=== PATIENT | female | born 1995 | race Caucasian/White ===

== ENCOUNTER 2019-03-11 15:00 | Outpatient (CLI) | payer MEDICAID, SELFPAY ==
[2019-03-11 16:24] LABS: Basophils % 0.4 %; Eosinophils # 0.2 10^3/uL (0.0-0.8); Eosinophils % 4.2 %; Hematocrit 34.4 % (37.0-47.0); Hemoglobin 12.1 g/dL (11.5-15.3); Lymphocytes # 2.2 10^3/uL (0.8-4.8); Lymphocytes % 39.3 %; Mean Corpuscular HGB Conc 35.2 g/dL (30.0-36.0); Mean Corpuscular Hemoglobin 39.4 pg (28.0-34.0); Mean Corpuscular Volume 112.1 fL (81-99); Mean Platelet Volume 11.4 fL (7.4-10.4); Monocytes # 0.4 10^3/uL (0.2-0.9); Monocytes % 7.5 %; Neutrophils # 2.7 10^3/uL (1.8-7.7); Neutrophils % 48.2 %; Nucleated Red Blood Cells % 0 %; Platelet Count 155 10^3/cmm (130-400); Red Blood Count 3.07 10^6/uL (4.1-5.3); Red Cell Distribution Width 15.8 % (12.1-15.1); White Blood Count 5.5 10^3/uL (4.0-10.0)
--- NOTE | 2019-03-12 13:10 | ONC FU_ITS ---
Dr. Seo follow up note Patient: Luba Ann Unit #: [id number]: 1995 Dicatated By: Lauryn Seo M.D.Date of Visit:Mar 11, 2019 Onc Med Follow-up/Prog Note History of Present Illness: is a 24-year-old female with history of anemia. In the past, she was treated with vitamins and iron. April 04, 2018 she had developed jaundice, urine/stool color changes and presented to ER with nausea vomiting. Lab workup done in the emergency room showed hemoglobin 9.3 hematocrit 26.2 white blood count 7.7 platelets 1 96,000 haptoglobin 10 total bilirubin 10.5 urine showed 2+ bilirubin, LDH was 290 and creatinine was 0.7 with normal LFTs. Elevated reticulocyte count, anemia workup was inconclusive except FILIPPO positive. As per patient, her son had flulike symptoms and subsequently she did develop flulike symptoms prior to her visit to emergency room with nausea vomiting and jaundice. She has no history of blood transfusion; no history of connective tissue disorder. History of multiple miscarriages of unknown etiology. Patient was started on prednisone 100 mg by mouth daily and her hemoglobin was stabilized and she was discharged home on prednisone 60 mg, along with folic acid. Prednisone was further reduced to 40 mg by mouth daily on 04/15/2018, her follow-up lab showed hemoglobin in normal range and there was no evidence of hemolysis so on 04/24/2018, prednisone dose was further reduced to 20 mg by mouth daily for a week along with folic acid supplement Her labs checked on 04/30/2018 showed further improvement in her hemoglobin 15.4, hematocrit 46.2 with a normal bilirubin and LDH was slightly up at 244. Her prednisone dose was further reduced to 10 mg by mouth daily for week along with folic acid supplements. Was on Prednisone 10 mg by mouth every other day and discontinued on 06/12/2018 In May 2018, she thought she may be and was being followed by [facility]. On 08/31/2018 patient presented with mild jaundice and her CBC showed drop in her hemoglobin to 11.4 from 13.8 month ago and bilirubin cannot 3.7 LDH 313 Gayathri test came back positive and haptoglobin was 10, she was started on tappering dose prednisone 80 mg by mouth daily along with folic acid 1 mg daily. and stopped on 10/23/18 Came for follow-up, denies any specific complaints, no fever or chills, no nausea or vomiting, no melena or hematochezia, no petechiae, no jaundice, no nosebleed or gum bleed. . Medications: There is no information available for Current Medications - Patient. Allergies: Ondansetron HCl Review of Systems: Constitutional - Appetite is good and weight is stable. No fever, chills, hot flashes, or night sweats. Energy level is fair today, ENMT - No sinus congestion/drainage. No mouth sores. No sore throat or difficulty swallowing, Hematologic/Lymphatic - No abnormal bruising or bleeding, Respiratory - No cough today, Cardiovascular - No angina pain. No palpitations, Gastrointestinal - No nausea or vomiting. No heartburn or acid reflux. No diarrhea or constipation. No blood in the stool or black stools, Genitourinary (F) - No dysuria or hematuria. No urinary frequency. No urgency or incontinence, Musculoskeletal - No joint or bone pain, Neurologic - No headache or dizziness. No numbness/paresthesias or other focal neurologic symptoms, Psychiatric - No anxiety or depression. No insomnia. Vital Signs: Performed on Mar 11, 2019 16:20 Height - 66.00 in Weight - 172.2 lbs (LOW) BSA - 1.88 sq.m BMI - 27.79 Temperature - 98.0 F (LOW) Pulse - 93 /min Respiration - 20 /min BP - 144/94 mm(hg) (HIGH) O2 Sat - 100 % Pain - 0 Performance Status: 0 - Fully active, able to carry on all predisease activities without restrictions. (ECOG) Physical Examination: ENMT - No oral exudates, ulcers, masses, thrush or mucositis. Oropharynx clear. Tongue normal, Neck - Supple without masses or thyromegaly. No jugular venous distension, Respiratory - Lungs are clear to auscultation without rhonchi or wheezing, Cardiovascular - Regular rate and rhythm of heart without murmurs, gallops or rubs, Abdomen - Non-tender, non-distended, . Good bowel sounds. No guarding or rebound tenderness. No pulsatile masses, Extremities - no edema. Lab/Imaging: Test performed on Mar 11, 2019 15:15 WBC 5.5 10^9/L RBC 3.07 10^12/L HGB 12.1 g/dL HCT 34.4 % MCV 112.1 fl MCH 39.4 pg MCHC 35.2 g/dL RDW 15.8 % Platelet Count 155 10^9/L MPV 11.4 fL Neutrophils (Gran) 2.7 10^9/L Lymphocytes 2.2 10^9/L Monocytes 0.4 10^9/L Eosinophils 0.2 10^9/L Basophils 0.0 10^9/L Manual Lymphocytes 39.3 % Manual Monocytes 7.5 % Manual Eosinophils 4.2 % Manual Basophils 0.4 % NRBCs 0.0 /100 WBC Test performed on Dec 28, 2018 15:21 Neutrophil % 43.1 % Lymphocyte % 43.4 % Monocyte % 8.9 % Eosinophil % 4.0 % Basophils % 0.6 % Test performed on Nov 12, 2018 10:50 TSH 1.55 uIU/mL Test performed on Sep 16, 2018 14:35 Sodium 139 mmol/L Potassium 3.9 mmol/L Chloride 102 mmol/L CO2 22 mmol/L Anion Gap 18.9 BUN 15 mg/dL Creatinine 0.9 mg/dL Cr Clearance (Est) 121.80 mL/min eGFR 76.3 mL/min Glucose 116 mg/dl Calcium 9.1 mg/dL Protein, Total 7.1 g/dL Albumin 4.4 g/dL Globulin 2.7 gm/dL Bilirubin, Total 0.8 mg/dL ALT (SGPT) 19 U/L AST (SGOT) 10 U/L Alkaline Phosphatase 55 IU/L Impression: Autoimmune hemolytic anemia, FILIPPO positive, on prednisone tapering dose and folic acid now with normalization of hemoglobin Hemoglobin remained in the normal range so prednisone discontinued on 06/12/2018 Mild to moderate isolated thrombocytopenia, new finding E.g. first-time seen on labs done on 06/10/2008, etiology unclear, could be underlying ITP or idiopathic or subacute infection History of multiple miscarriages, now being evaluated by [facility] History of anemia, in the past treated with and iron supplement On 08/31/2018, she was restarted on prednisone 80 mg by mouth daily for recurrence of hemolytic anemia evident by drop in her hemoglobin to 11.4 g compared 13.8 on 07/27/2018 and bilirubin gone up 3.7 and LDH was 313 and haptoglobin was 10 and Gayathri' test was positive.Prednisone was tapered and finally stopped on 10/21/2018 as her hemoglobin stayed within normal range Plan: Discussed patient regarding her labs white blood count 5.5 hemoglobin 12.1 crit 34.4 platelets 155,000 Clinically, patient doing well with no signs symptom suggestive of gross bleeding, or hemoptysis. Her lab workup shows hemoglobin and platelet count in normal range. We'll continue to monitor and then she will return to clinic in 2 months with CBC. Unless jaundice or petechiae or ecchymosis or gross bleeding in that case she will call us early. Signed By: Lauryn Seo M.D. <<Signature on File>>
== END 2019-03-11 15:01 | disposition home or self-care (01) ==
LOC: ONCMED 15:01
PROVIDERS: Family Provider Nurse Practitioner Family; PCP Nurse Practitioner Family; Visit Provider Internal Medicine Hematology & Oncology
DX: D59.1 Other autoimmune hemolytic anemias (principal); D69.6 Thrombocytopenia, unspecified; Z79.52 Long term (current) use of systemic steroids
CPT/HCPCS: 36415; 85025; G0463

== ENCOUNTER 2019-05-27 01:05 | Emergency (ER) | payer MEDICAID, SELFPAY ==
[2019-05-27] VITALS (10 sets, daily range): BP systolic 104–148; BP diastolic 73–113; PULSE 73–84; RESP 14–16; TEMP 36.9; O2SAT 96–100; BMI 26.6
--- NOTE | 2019-05-27 01:08 | US_ITS ---
WS: [id number] Early obstetrical ultrasound. HISTORY: Pain. Vaginal bleeding. Intrauterine gestation is identified on transabdominal imaging. There is an intrauterine gestational sac containing a crown-rump length. [place]-rump length of 1.5 cm corresponds to gestation of 7 weeks a nd 6 days. No cardiac activity is identified. Normal yolk sac is not imaged. No subchorionic hemorrha ge. No free fluid. No adnexal masses. US/US pelvic complete* [id number] IMPRESSION: 1. Findings consistent with embryonic demise. No cardiac activity is identified on this transabdominal study. 2. Single intrauterine gestation of 7 weeks and 6 days.
--- NOTE | 2019-05-27 01:12 | ED_ITS ---
HPI - Abdominal Pain General: Chief Complaint: Vaginal Bleeding Stated Complaint: 10 WEEKS PREG/BLEEDING Time Seen by Provider: 05/27/19 01:06 History of Present Illness: HPI narrative: Luba is a nice 24-year-old female who comes in complaining of vaginal bleeding. She is 7, para 1, aborta 5. She states she is had many miscarriages secondary to antiphospholipid antibody syndrome. She denies any dysuria, fevers, chills, abdominal pain, low back pain or otherwise. She states secondary to the bleeding was just started today she was concerned and wanted to be checked out. She is not seen anybody for this up to this point. Associated Symptoms: Denies chills, coffee ground emesis, constipation, GI cramping, diarrhea, dysuria, fever(s), hematochezia, hematuria, hematemesis, melena, nausea, syncope and vomiting Review of Systems General: Reports: other (negative unless marked) Const: Denies: fever, chills, body aches, fatigue, malaise or diaphoresis Eyes: Denies: change in vision or blurry vision ENMT: Denies: throat pain, painful swallowing, hoarseness, ear pain, ear discharge, Change in hearing or nasal discharge Card: Denies: chest pain, palpitations, irregular heart rhythm, syncope, pre- syncope, shortness of breath on exertion or shortness of breath when lying down Resp: Denies: shortness of breath, productive cough, non-productive cough, wheezing, coughing up blood or chest congestion GI: Denies: abdominal pain, nausea, vomiting, vomiting blood, coffee grounds in vomit, diarrhea, constipation, cramping, blood in stool or black tarry stool : Denies: flank pain, painful urination, urinary frequency, urinary urgency, decreased urine ouput, urinary incontinence or blood in urine Musc: Denies: neck pain, back pain, extremity pain, extremity swelling, joint pain, joint swelling, joint warmth or joint stiffness Skin/Breast: Denies: rash, skin tenderness or yellow skin Neuro: Denies: headache, numbness in extremities, weakness in extremities, changes in sensation, lack of coordination, difficulty walking, dizziness, vertigo or confusion Endo: Denies: excessive thirst, tired all the time, cold intolerance, excessive sweating, flushing or hot flashes Wan/Lymph: Denies: easy bruising, easy bleeding, petechiae or enlarged lymph nodes All/Imm: Denies: hives, throat swelling, tongue swelling, facial swelling or acute wheezing PFSH ED PFSH: Medical History Antiphospholipid antibody syndrome Systemic lupus erythematosus Social History Smoking and tobacco status: current every day smoker Physical Exam Const: COMMON NORMALS: no apparent distress, oriented x3, no limitations, healthy appearing and well nourished EXAM LIMITATIONS: no altered mental status GENERAL APPEARANCE: cooperative, well kempt and well developed ORIE NTATION/CONSCIOUSNESS: Yes awake HENMT: COMMON NORMALS: normocephalic, head/scalp atraumatic, hearing grossly normal bilaterally, external ears normal, EAC's normal, external nose normal and moist oral mucous membranes HEAD & SCALP: normal to inspection, normocephalic and atraumatic FACE & SINUS: normal facial exam and face symmetric NOSE: external nose normal and nares normal EXTERNAL EAR: Yes external ears normal EXTERNAL AUDITORY CANAL: EAC's normal MOUTH: oral and palatal mucosa normal and tongue normal Eye: COMMON NORMALS: PERRL, EOMs intact bilaterally, conjunctivae normal and no scleral icterus GENERAL EYE: normal appearance of both eyes and normal light reflex CONJUNCTIVA: Yes conjunctivae normal SCLERA: sclerae normal CORNEA: Yes corneas normal PUPIL: Yes PERRL DIRECT OPHTHALMOSCOPY: Yes normal light reflex Neck/C-Spine: COMMON NORMALS: full ROM, no lymphadenopathy, supple, no meningeal signs and no JVD GENERAL: Yes normal visual inspection and Yes trachea midline CERVICAL SPINE: Yes cervical ROM normal Chest: COMMONS NORMALS: inspection of chest normal and palpation of chest normal Resp: COMMON NORMALS: normal respiratory effort, no retractions, no use of accessory muscles and clear to auscultation bilaterally EFFORT & INSPECTION: Yes able to speak in complete sentences AUSCULTATION: clear to auscultation bilaterally Cardio: COMMON NORMALS: no JVD, regular rate, regular rhythm, S1 normal heart sound, S2 normal heart sound, no gallops, no clicks, no murmurs and no rub JUGULAR VENOUS DISTENTION: no JVD RATE: regular rate RHYTHM: regular rhythm HEART SOUNDS: S1 normal and S2 normal GI: COMMON NORMALS: soft to palpation, non-tender, no hepatosplenomegaly and no masses INSPECTION: Yes normal to inspection PALPATION: Yes soft and Yes no hepatosplenomegaly : COMMON NORMALS: Yes no CVA tenderness and Yes bimanual exam normal BLADDER/KIDNEY EXAM: Yes no CVA tenderness SPECULUM EXAM - VAGINA: Yes vaginal bleeding Amount: scant and No vaginal tenderness SPECULUM EXAM - CERVIX: No cervical os open and Yes cervical os closed BIMANUAL EXAM - VAGINA & UTERUS: Yes normal bimanual exam, Yes normal cervical palpation and No cervical motion tenderness BIMANUAL EXAM - ADNEXA, OTHER: Yes normal adnexae, Yes pelvic support normal, No adnexal tenderness and No adnexal mass OB/EXTERNAL & SPECULUM: vaginal bleeding; No cervical os open Back/Pelvis: COMMON NORMALS: no CVA tenderness, thoracic and lumbar spine normal to inspection, no thoracic nor lumbar tenderness and thoraco-lumbar ROM normal Extremity: COMMON NORMALS: normal to inspection, full ROM, normal capillary refill, no joint enlargement, no clubbing, cyanosis or edema and no calf tenderness Neuro: COMMON NORMALS: oriented x3, CN's II-XII intact bilaterally, moves all extremities, no focal motor deficits and no sensory deficits noted MENINGEAL SIGNS: Yes no meningeal signs Psych: COMMON NORMALS: mental status grossly normal, thought process normal, cooperative, affect normal, speech normal and activity/motor behavior normal APPEARANCE: Yes well kempt SPEECH: Yes normal speech THOUGHT PROCESS: normal thought process Skin: COMMON NORMALS: no rashes or lesions noted, skin turgor normal, no jaundice, no petechiae and no mottling GENERAL SKIN EXAM: no rashes or lesions noted and turgor normal Course Vital Signs: Vital signs: Vital Signs Temperature 98.4 F 05/27/19 01:09 Pulse Rate 79 05/27/19 02:11 Respiratory Rate 16 05/27/19 02:11 Blood Pressure 111/78 05/27/19 02:11 Pulse Oximetry 98 05/27/19 02:11 MDM - Abdominal Pain MDM Narrative: Medical decision making narrative: Luba is a 24-year-old female who comes in with vaginal bleeding. She believes herself to be 10 weeks by dates but on ultrasound she is measuring 7 weeks and shows signs of demise. Patient is used to this is she has had several other miscarriages. She understands she needs to have her blood redrawn and a repeat ultrasound in 2 days. She will follow-up with Dr. Borrego who she is seeing for her LAN SUPPORT SPECIALIST but if she cannot get and she will return here. Concerning her elevated total bilirubin this is been a problem in the past with her antiphospholipid antibody syndrome and lupus. She says Dr. Seo manages this. Per review of records she is been much higher than this in the past. She will make a phone call in the morning to have him manage this and she expects to be put on prednisone. Otherwise she denies any complaints or concerns she has no abdominal pain just the vaginal bleeding. She will return if she has any problems in the meantime. Lab Data: Attestation: I reviewed the patient's lab results. Labs: Lab Results 05/27/19 05/27/19 05/27/19 Range/Units 01:32 01:32 01:32 WBC 6.5 (4.0-10.0) 10^3/ uL RBC 3.48 L (4.1-5.3) 10^6/u L Hgb 11.9 (11.5-15.3) g/dL Hct 35.0 L (37.0-47.0) % MCV 100.6 H (81-99) fL MCH 34.2 H (28.0-34.0) pg MCHC 34.0 (30.0-36.0) g/dL RDW 12.3 (12.1-15.1) % Plt Count 198 (130-400) 10^3/c mm MPV 11.5 H (7.4-10.4) fL Neut % (Auto) 43.2 % Lymph % (Auto) 45.9 % [place] % (Auto) 7.3 % Eos % (Auto) 2.9 % Baso % (Auto) 0.5 % Neut # (Auto) 2.8 (1.8-7.7) 10^3/u L Lymph # (Auto) 3.0 (0.8-4.8) 10^3/u L [place] # (Auto) 0.5 (0.2-0.9) 10^3/u L Eos # (Auto) 0.2 (0.0-0.8) 10^3/u L Baso # (Auto) 0.0 (0.0-0.1) 10^3/u L Nucleated RBC % (a uto) 0 % Nucleated RBCs # 0.0 /100WBC Sodium 136 (136-145) mmol/L Potassium 3.9 (3.5-5.1) mmol/L Chloride 102 (98-107) mmol/L Carbon Dioxide 22 (22-29) mmol/L Anion Gap 15.9 (5-19) BUN 9 (6-20) mg/dL Creatinine 0.7 (0.5-0.9) mg/dL GFR Calculation 101.1 (90-130) mL/min Glucose 93 (65-115) mg/dL Calculated Osmolal ity 278 L (285-295) mOsm/k g Calcium 9.6 (8.5-10.5) mg/dL Total Bilirubin 1.8 H (0.15-1.2) mg/dL AST 16 (0-32) U/L ALT 19 (0-33) U/L Alkaline Phosphata se 70 (35-105) IU/L Total Protein 6.9 (6.6-8.7) g/dL Albumin 4.1 (3.5-5.2) g/dL Globulin 2.8 (1.3-4.6) g/dL Ser , Husam i-Qnt mIU/mL Urine Color (Yellow) Urine Appearance (CLEAR) Urine pH (5-7) Ur Specific Gravit y (1.005-1.030) Urine Protein (Negative) Urine Glucose (UA) (Normal) Urine Ketones (Negative) Urine Blood (Negative) Urine Nitrate (Negative) Urine Bilirubin (NEGATIVE) Urine Urobilinogen (Negative) mg/dL Ur Leukocyte Kristin ase (Negative) Rho(D) Type Negaive 05/27/19 05/27/19 Range/Units 01:32 01:42 WBC (4.0-10.0) 10^3/ uL RBC (4.1-5.3) 10^6/u L Hgb (11.5-15.3) g/dL Hct (37.0-47.0) % MCV (81-99) fL MCH (28.0-34.0) pg MCHC (30.0-36.0) g/dL RDW (12.1-15.1) % Plt Count (130-400) 10^3/c mm MPV (7.4-10.4) fL Neut % (Auto) % Lymph % (Auto) % [place] % (Auto) % Eos % (Auto) % Baso % (Auto) % Neut # (Auto) (1.8-7.7) 10^3/u L Lymph # (Auto) (0.8-4.8) 10^3/u L [place] # (Auto) (0.2-0.9) 10^3/u L Eos # (Auto) (0.0-0.8) 10^3/u L Baso # (Auto) (0.0-0.1) 10^3/u L Nucleated RBC % (a uto) % Nucleated RBCs # /100WBC Sodium (136-145) mmol/L Potassium (3.5-5.1) mmol/L Chloride (98-107) mmol/L Carbon Dioxide (22-29) mmol/L Anion Gap (5-19) BUN (6-20) mg/dL Creatinine (0.5-0.9) mg/dL GFR Calculation (90-130) mL/min Glucose (65-115) mg/dL Calculated Osmolal ity (285-295) mOsm/k g Calcium (8.5-10.5) mg/dL Total Bilirubin (0.15-1.2) mg/dL AST (0-32) U/L ALT (0-33) U/L Alkaline Phosphata se (35-105) IU/L Total Protein (6.6-8.7) g/dL Albumin (3.5-5.2) g/dL Globulin (1.3-4.6) g/dL Ser , [place]nt 79520.00 mIU/mL Urine Color Yellow (Yellow) Urine Appearance Clear (CLEAR) Urine pH 5 (5-7) Ur Specific Gravit y 1.010 (1.005-1.030) Urine Protein Neg (Negative) Urine Glucose (UA) Norm (Normal) Urine Ketones Negative (Negative) Urine Blood Neg (Negative) Urine Nitrate Negative (Negative) Urine Bilirubin Neg (NEGATIVE) Urine Urobilinogen Norm (Negative) mg/dL Ur Leukocyte Kristin ase Negative (Negative) Rho(D) Type Imaging Data ^: US: Radiologist's impression: Pelvic ultrasound, technologist interpretation - demise. at 7 weeks with involuting sac. Sac pulling away from uterine lining. Normal ovaries. No torsion. Physiologic free fluid in the pelvis. No sign of ectopic. Otherwise unremarkable. Discharge Plan Discharge Patient Disposition: Home, Self-Care Clinical Impression: Incomplete Condition: Stable Referrals: Ligia Izaguirre MD [Physician] - 1-3 days Sukhi Costello FNP [Family Provider] - Daina Lucas FNP [Primary Care Provider] - Patient Instructions: Spontaneous Miscarriage (ED) Activity Restrictions/Additional Instructions: Please return to the ER immediately for any of the signs or symptoms listed on your discharge instruction sheets, worsening/changing of your symptoms, you are not getting better as quickly as expected, or for ANY other cause or concerns. Return to the ER if you develop heavy bleeding, lightheadedness, dizziness, fever, vomiting, or for any other cause for concern. Be certain to call Dr. Seo in regards to your developing a an elevated bilirubin. Be certain to be rechecked by your LAN SUPPORT SPECIALIST in 2 days to make sure your hormone is trending back to normal and for repeat examination. If for any reason you are unable to be seen by your LAN SUPPORT SPECIALIST or Dr. Borrego, return to the ER for recheck. Coding Level of Care Code ED Coordinator [employer] for Chg Fwd Exam Comprehensive
[2019-05-27 01:44] LABS: Basophils % 0.5 %; Eosinophils # 0.2 10^3/uL (0.0-0.8); Eosinophils % 2.9 %; Hemoglobin 11.9 g/dL (11.5-15.3); Lymphocytes % 45.9 %; Mean Corpuscular Hemoglobin 34.2 pg (28.0-34.0); Mean Corpuscular Volume 100.6 fL (81-99); Mean Platelet Volume 11.5 fL (7.4-10.4); Monocytes # 0.5 10^3/uL (0.2-0.9); Monocytes % 7.3 %; Neutrophils # 2.8 10^3/uL (1.8-7.7); Neutrophils % 43.2 %; Nucleated Red Blood Cells % 0 %; Platelet Count 198 10^3/cmm (130-400); Red Blood Count 3.48 10^6/uL (4.1-5.3); Red Cell Distribution Width 12.3 % (12.1-15.1); White Blood Count 6.5 10^3/uL (4.0-10.0)
[2019-05-27 01:55] LABS: Alanine Aminotransferase 19 U/L (0-33); Albumin Level 4.1 g/dL (3.5-5.2); Alkaline Phosphatase 70 IU/L (35-105); Anion Gap 15.9 (5-19); Aspartate Amino Transferase 16 U/L (0-32); Blood Urea Nitrogen 9 mg/dL (6-20); Calcium 9.6 mg/dL (8.5-10.5); Carbon Dioxide 22 mmol/L (22-29); Chloride 102 mmol/L (98-107); Globulin 2.8 g/dL (1.3-4.6); Glomerular Filtration Rate 101.1 mL/min (90-130); Glucose 93 mg/dL (65-115); Osmolality Calculated 278 mOsm/kg (285-295); Potassium 3.9 mmol/L (3.5-5.1); Sodium 136 mmol/L (136-145); Total Bilirubin 1.8 mg/dL (0.15-1.2); Total Protein 6.9 g/dL (6.6-8.7)
--- NOTE | 2019-05-27 01:55 | PC.NURSE ---
pelvic set up for HCP ready, HCP informed and nurse chaperoned procedure and assisted with swab collection. swabs labeled in presence of patient and taken to lab by nurse.
[2019-05-27 02:16] LABS: Add Urine Culture? No; Bilirubin Urine Neg (NEGATIVE); Blood Urine Neg (Negative); Glucose Urine UA Norm (Normal); Ketones Urine Negative (Negative); Leukocyte Esterase Urine Negative (Negative); Nitrate Urine Negative (Negative); Protein Urine Neg (Negative); Urine Appearance Clear (CLEAR); Urine Color Yellow (Yellow); Urobilinogen Urine Norm (Negative); pH Urine 5 (5-7)
--- NOTE | 2019-05-27 02:59 | PC.NURSE ---
PATIENT UPDATED ON PLAN OF CARE.
--- NOTE | 2019-05-31 13:57 | DCPLANNER ---
community services manager had message to schedule a follow up appointment for patient with [facility]. community services manager called [facility], spoke with Christina, gave clinic patients information. community services manager was told that patients information would be printed and reviewed. Clinic will call ed case manager and patient with appointment information.
--- NOTE | 2019-06-01 11:45 | DCPLANNER ---
Christina from [facility] called housing case manager with appointment information. manager news was told that a follow up appointment was scheduled for Sunday, June 02, 2019 at 10:[address] Santana. Clinic will call patient with appointment information.
--- NOTE | 2019-07-21 08:01 | DCPLANNER ---
Patient attended appointment on 06.02.19 with [facility].
== END 2019-05-27 05:09 | disposition home or self-care (01) ==
PROVIDERS: Emergency Provider Emergency Medicine; Family Provider Nurse Practitioner Family; PCP Nurse Practitioner Family
DX: O03.4 Incomplete spontaneous abortion without complication (principal); O99.331 Smoking (tobacco) complicating pregnancy, first trimester; F17.200 Nicotine dependence, unspecified, uncomplicated; Z3A.01 Less than 8 weeks gestation of pregnancy
CPT/HCPCS: 12345; 36415; 76856; 80053; 81001; 84702; 85025; 86850; 86870; 86900; 87210; 87491; 87591; 90384; 96360; 96361; 96372; 99282; 99283; 99284

== ENCOUNTER 2019-05-31 10:25 | Outpatient (CLI) | payer MEDICAID, SELFPAY ==
[2019-05-31 19:36] LABS: Basophils % 0.2 %; Eosinophils # 0.2 10^3/uL (0.0-0.8); Eosinophils % 4.1 %; Hematocrit 33.1 % (37.0-47.0); Hemoglobin 12.1 g/dL (11.5-15.3); Lymphocytes # 2.5 10^3/uL (0.8-4.8); Lymphocytes % 45.1 %; Mean Corpuscular HGB Conc 36.6 g/dL (30.0-36.0); Mean Corpuscular Hemoglobin 39.3 pg (28.0-34.0); Mean Corpuscular Volume 107.5 fL (81-99); Mean Platelet Volume 12.4 fL (7.4-10.4); Monocytes # 0.3 10^3/uL (0.2-0.9); Monocytes % 5.3 %; Neutrophils # 2.5 10^3/uL (1.8-7.7); Neutrophils % 45.1 %; Nucleated Red Blood Cells % 0 %; Platelet Count 180 10^3/cmm (130-400); Red Blood Count 3.08 10^6/uL (4.1-5.3); Red Cell Distribution Width 12.6 % (12.1-15.1); White Blood Count 5.6 10^3/uL (4.0-10.0)
[2019-05-31 19:48] LABS: Alanine Aminotransferase 17 U/L (0-33); Albumin Level 4.1 g/dL (3.5-5.2); Alkaline Phosphatase 80 IU/L (35-105); Anion Gap 18.2 (5-19); Aspartate Amino Transferase 16 U/L (0-32); Blood Urea Nitrogen 8 mg/dL (6-20); Calcium 9.3 mg/dL (8.5-10.5); Carbon Dioxide 22 mmol/L (22-29); Chloride 104 mmol/L (98-107); Globulin 3.3 g/dL (1.3-4.6); Glomerular Filtration Rate 86.7 mL/min (90-130); Glucose 59 mg/dL (65-115); Osmolality Calculated 286 mOsm/kg (285-295); Potassium 3.2 mmol/L (3.5-5.1); Sodium 141 mmol/L (136-145); Total Bilirubin 1.3 mg/dL (0.15-1.2); Total Protein 7.4 g/dL (6.6-8.7)
== END 2019-05-31 10:26 | disposition home or self-care (01) ==
LOC: ONCMED 06-01 09:39
PROVIDERS: Family Provider Nurse Practitioner Family; PCP Nurse Practitioner Family; Visit Provider Internal Medicine Hematology & Oncology
DX: D59.1 Other autoimmune hemolytic anemias (principal)
CPT/HCPCS: 36415; 80053; 85025

== ENCOUNTER 2019-06-08 06:00 | Outpatient (CLI) | payer MEDICAID, SELFPAY ==
[2019-06-08 20:34] LABS: Basophils % 0.4 %; Eosinophils # 0.3 10^3/uL (0.0-0.8); Eosinophils % 5.4 %; Hematocrit 37.9 % (37.0-47.0); Hemoglobin 13.5 g/dL (11.5-15.3); Lymphocytes # 2.5 10^3/uL (0.8-4.8); Lymphocytes % 47.7 %; Mean Corpuscular HGB Conc 35.6 g/dL (30.0-36.0); Mean Corpuscular Hemoglobin 37.4 pg (28.0-34.0); Mean Platelet Volume 12.3 fL (7.4-10.4); Monocytes # 0.3 10^3/uL (0.2-0.9); Monocytes % 6.6 %; Neutrophils # 2.1 10^3/uL (1.8-7.7); Neutrophils % 39.9 %; Nucleated Red Blood Cells % 0 %; Platelet Count 194 10^3/cmm (130-400); Red Blood Count 3.61 10^6/uL (4.1-5.3); Red Cell Distribution Width 12.3 % (12.1-15.1); White Blood Count 5.2 10^3/uL (4.0-10.0)
[2019-06-08 20:59] LABS: Alanine Aminotransferase 20 U/L (0-33); Albumin Level 4.3 g/dL (3.5-5.2); Alkaline Phosphatase 85 IU/L (35-105); Anion Gap 18.3 (5-19); Aspartate Amino Transferase 19 U/L (0-32); Blood Urea Nitrogen 7 mg/dL (6-20); Calcium 9.6 mg/dL (8.5-10.5); Carbon Dioxide 23 mmol/L (22-29); Chloride 101 mmol/L (98-107); Globulin 3.4 g/dL (1.3-4.6); Glomerular Filtration Rate 86.7 mL/min (90-130); Glucose 47 mg/dL (65-115); Osmolality Calculated 281 mOsm/kg (285-295); Potassium 3.3 mmol/L (3.5-5.1); Sodium 139 mmol/L (136-145); Total Bilirubin 1.4 mg/dL (0.15-1.2); Total Protein 7.7 g/dL (6.6-8.7)
== END 2019-06-08 06:01 | disposition home or self-care (01) ==
LOC: ONCMED 06-09 12:33
PROVIDERS: Family Provider Nurse Practitioner Family; PCP Nurse Practitioner Family; Visit Provider Internal Medicine Hematology & Oncology
DX: D59.1 Other autoimmune hemolytic anemias (principal)
CPT/HCPCS: 36415; 80053; 85025

== ENCOUNTER → 2019-06-09 11:00 | Outpatient (BNVA) | payer MEDICAID, SELFPAY | PROVIDERS: Family Provider Nurse Practitioner Family; PCP Nurse Practitioner Family; Visit Provider Obstetrics & Gynecology Female Pelvic Medicine and Reconstructive Surgery | DX: O03.83 Metabolic disorder following complete or unspecified spontaneous abortion (principal); N88.9 Noninflammatory disorder of cervix uteri, unspecified | CPT/HCPCS: 84702; 88305 ==

== ENCOUNTER → 2019-06-14 15:49 | Outpatient (BNVA) | payer MEDICAID, SELFPAY | PROVIDERS: Family Provider Nurse Practitioner Family; PCP Nurse Practitioner Family; Visit Provider Obstetrics & Gynecology Female Pelvic Medicine and Reconstructive Surgery | DX: O03.83 Metabolic disorder following complete or unspecified spontaneous abortion (principal) | CPT/HCPCS: 84702 ==

== ENCOUNTER → 2019-06-15 11:06 | Outpatient (BNVA) | payer MEDICAID, SELFPAY | PROVIDERS: Family Provider Nurse Practitioner Family; PCP Nurse Practitioner Family; Visit Provider Obstetrics & Gynecology Female Pelvic Medicine and Reconstructive Surgery | DX: N88.9 Noninflammatory disorder of cervix uteri, unspecified (principal); N87.1 Moderate cervical dysplasia; A63.0 Anogenital (venereal) warts | CPT/HCPCS: 81000 ==

== ENCOUNTER → 2019-06-16 11:16 | Outpatient (BNVA) | payer MEDICAID, SELFPAY | PROVIDERS: Family Provider Nurse Practitioner Family; PCP Nurse Practitioner Family; Visit Provider Obstetrics & Gynecology Female Pelvic Medicine and Reconstructive Surgery | DX: N87.1 Moderate cervical dysplasia (principal) | CPT/HCPCS: 88305; 88307 ==

== ENCOUNTER → 2019-06-30 16:57 | Outpatient (BNVA) | payer MEDICAID, SELFPAY | PROVIDERS: Family Provider Nurse Practitioner Family; PCP Nurse Practitioner Family; Visit Provider Emergency Medicine | DX: J02.9 Acute pharyngitis, unspecified (principal) | CPT/HCPCS: 87071; 87880 ==

== ENCOUNTER 2019-07-09 08:10 | Outpatient (CLI) | payer MEDICAID, SELFPAY ==
[2019-07-09 11:23] LABS: Basophils % 0.3 %; Eosinophils # 0.3 10^3/uL (0.0-0.8); Eosinophils % 5.1 %; Hematocrit 41.7 % (37.0-47.0); Hemoglobin 14.6 g/dL (11.5-15.3); Lymphocytes # 2.8 10^3/uL (0.8-4.8); Lymphocytes % 47.9 %; Mean Corpuscular Hemoglobin 34.4 pg (28.0-34.0); Mean Corpuscular Volume 98.1 fL (81-99); Mean Platelet Volume 12.2 fL (7.4-10.4); Monocytes # 0.4 10^3/uL (0.2-0.9); Monocytes % 6.5 %; Neutrophils # 2.4 10^3/uL (1.8-7.7); Nucleated Red Blood Cells % 0 %; Platelet Count 132 10^3/cmm (130-400); Red Blood Count 4.25 10^6/uL (4.1-5.3); Red Cell Distribution Width 11.7 % (12.1-15.1); White Blood Count 5.9 10^3/uL (4.0-10.0)
[2019-07-09 11:53] LABS: Alanine Aminotransferase 13 U/L (0-33); Alkaline Phosphatase 80 IU/L (35-105); Aspartate Amino Transferase 14 U/L (0-32); Blood Urea Nitrogen 5 mg/dL (6-20); Calcium 9.3 mg/dL (8.5-10.5); Carbon Dioxide 20 mmol/L (22-29); Chloride 106 mmol/L (98-107); Globulin 3.2 g/dL (1.3-4.6); Glomerular Filtration Rate 86.7 mL/min (90-130); Glucose 79 mg/dL (65-115); Osmolality Calculated 283 mOsm/kg (285-295); Sodium 139 mmol/L (136-145); Total Bilirubin 0.7 mg/dL (0.15-1.2); Total Protein 7.2 g/dL (6.6-8.7)
== END 2019-07-09 08:11 | disposition home or self-care (01) ==
LOC: ONCMED 11:31
PROVIDERS: PCP Nurse Practitioner Family; Visit Provider Internal Medicine Hematology & Oncology
DX: D59.1 Other autoimmune hemolytic anemias (principal)
CPT/HCPCS: 36415; 80053; 85025

== ENCOUNTER → 2020-04-17 00:01 | Outpatient (BNVA) | payer BC, MEDICAID, SELFPAY | PROVIDERS: PCP Nurse Practitioner Family; Visit Provider Obstetrics & Gynecology | DX: N87.1 Moderate cervical dysplasia (principal); A63.0 Anogenital (venereal) warts | CPT/HCPCS: 88175 ==

== ENCOUNTER → 2020-05-03 08:23 | Outpatient (BNVA) | payer BC, MEDICAID, SELFPAY | PROVIDERS: PCP Nurse Practitioner Family; Referring Provider Psychiatry & Neurology Neurology; Visit Provider Psychiatry & Neurology Neurology | DX: D64.9 Anemia, unspecified (principal) | CPT/HCPCS: 85007; 85027 ==

== ENCOUNTER 2020-05-05 11:30 | Outpatient (CLI) | payer BC, MEDICAID, SELFPAY | END 2020-05-05 11:31 | disposition home or self-care (01) | LOC: ONCMED 11:33 | PROVIDERS: PCP Nurse Practitioner Family; Visit Provider Internal Medicine Hematology & Oncology | DX: R10.32 Left lower quadrant pain (principal); N94.9 Unspecified condition associated with female genital organs and menstrual cycle | CPT/HCPCS: 76830 ==

== ENCOUNTER → 2020-05-08 11:16 | Outpatient (BNVA) | payer BC, MEDICAID, SELFPAY | PROVIDERS: PCP Nurse Practitioner Family; Visit Provider Obstetrics & Gynecology | DX: N91.1 Secondary amenorrhea (principal); M32.9 Systemic lupus erythematosus, unspecified | CPT/HCPCS: 81025 ==

== ENCOUNTER → 2020-05-23 13:36 | Outpatient (BNVA) | payer BC, MEDICAID, SELFPAY | PROVIDERS: PCP Nurse Practitioner Family; Visit Provider Obstetrics & Gynecology | DX: M32.9 Systemic lupus erythematosus, unspecified (principal) | CPT/HCPCS: 80076; 82565; 85025; 85651; 86038; 86140; 86160; 86162; 86235; 86255; 86376; 86431 ==

== ENCOUNTER → 2020-07-28 09:00 | Outpatient (BNVA) | payer BC, MEDICAID, SELFPAY | PROVIDERS: PCP Nurse Practitioner Family; Visit Provider Internal Medicine | DX: D68.61 Antiphospholipid syndrome (principal); R76.8 Other specified abnormal immunological findings in serum; R53.83 Other fatigue; M25.50 Pain in unspecified joint; R21 Rash and other nonspecific skin eruption; F48.8 Other specified nonpsychotic mental disorders; Z79.52 Long term (current) use of systemic steroids; F17.210 Nicotine dependence, cigarettes, uncomplicated | CPT/HCPCS: 99214 ==

== ENCOUNTER 2020-07-28 10:17 | Outpatient (CLI) | payer BC, MEDICAID, SELFPAY ==
--- NOTE | 2020-07-28 11:38 | ECG_ITS ---
[facility] Test Date: 2020-07-28 Pat Name: Luba Ann Department: Room: Gender: Female Cytometry Technologist: : 1995 Requested By: Kurtis Black Order Number: [id number] Rianna MD: MARCELO JESUS Measurements Intervals [place] Rate: 88 P: 56 NC: 171 QRS: 71 QRSD: 80 T: 53 QT: 352 QTc: 428 Interpretive Statements SINUS RHYTHM POSSIBLE LEFT ATRIAL ENLARGEMENT [-0.1mV P WAVE IN V1/V2] Compared to ECG 01/25/2019 19:59:13 No significant changes Electronically Signed On 07-29-2020 20:25:03 CDT by MARCELO JESUS [email or web address]
[2020-08-01 20:23] LABS: LA-Interp Not Indicated; PTT-LA 40 sec (<=40); Prothrombin Time 46 sec (<=45); Thrombin Time Reflex Negative (Negative)
[2020-08-03 06:13] LABS: Beta 2 Glycoprotein IGA 48.9 U/mL (<20.0); Beta 2 Glycoprotein IGG 23.9 U/mL (<20.0); Beta 2 Glycoprotein IGM >112.0 U/mL (<20.0)
[2020-08-16 11:52] LABS: CARDIOLIPIN AB (IGA) 62.2 APL-U/mL; CARDIOLIPIN AB (IGG) 27.1 GPL-U/mL; CARDIOLIPIN AB (IGM) >112.0 MPL-U/mL
== END 2020-07-28 10:18 | disposition home or self-care (01) ==
LOC: RT 10:43
PROVIDERS: PCP Nurse Practitioner Family; Visit Provider Internal Medicine
DX: D68.61 Antiphospholipid syndrome (principal)
CPT/HCPCS: 85613; 85730; 86146; 86147; 93005

== ENCOUNTER → 2020-08-17 14:21 | Outpatient (BNVA) | payer BC, MEDICAID, SELFPAY | PROVIDERS: PCP Nurse Practitioner Family; Visit Provider Internal Medicine | DX: D68.61 Antiphospholipid syndrome (principal); R76.8 Other specified abnormal immunological findings in serum; G47.00 Insomnia, unspecified; F41.9 Anxiety disorder, unspecified; F17.210 Nicotine dependence, cigarettes, uncomplicated | CPT/HCPCS: 99213 ==

== ENCOUNTER → 2020-09-21 12:27 | Outpatient (BNVA) | payer BC, MEDICAID, SELFPAY | PROVIDERS: PCP Nurse Practitioner Family; Visit Provider Emergency Medicine | DX: M25.572 Pain in left ankle and joints of left foot (principal) | CPT/HCPCS: 73610; 73630 ==

== ENCOUNTER 2020-12-13 16:45 | Outpatient (CLI) | payer BC, MEDICAID, SELFPAY ==
[2020-12-13 17:10] LABS: Add Urine Microscopic? NO; Charge for UA Resulting for Rev
[2020-12-13 17:15] LABS: Basophils % 0.6 %; Eosinophils # 0.1 10^3/uL (0.0-0.8); Eosinophils % 2.4 %; Hematocrit 43.8 % (37.0-47.0); Hemoglobin 14.6 g/dL (11.5-15.3); Lymphocytes # 1.3 10^3/uL (0.8-4.8); Lymphocytes % 26.1 %; Mean Corpuscular HGB Conc 33.3 g/dL (30.0-36.0); Mean Corpuscular Hemoglobin 31.1 pg (28.0-34.0); Mean Corpuscular Volume 93.4 fl (81-99); Mean Platelet Volume 12.4 fL (7.4-10.4); Monocytes # 0.3 10^3/uL (0.2-0.9); Monocytes % 5.5 %; Neutrophils # 3.29 10^3/uL (1.8-7.7); Neutrophils % 65.2 %; Nucleated Red Blood Cells % 0 %; Platelet Count 132 10^3/cmm (130-400); Red Blood Count 4.69 10^6/uL (4.1-5.3); White Blood Count 5.1 10^3/uL (4.0-10.0)
[2020-12-13 17:25] LABS: INR 0.94 (0.8-1.2)
[2020-12-13 17:26] LABS: Partial Thromboplastin Time 30.1 SECONDS (23.9-36.7)
[2020-12-13 18:04] LABS: Bilirubin Urine Neg (Negative); Blood Urine Neg (Negative); Glucose Urine UA Norm (Normal); Ketones Urine Negative (Negative); Leukocyte Esterase Urine Negative (Negative); Nitrate Urine Negative (Negative); Protein Urine Neg (Negative); Specific Gravity, Urine 1.005 (1.005-1.030); Urine Appearance Clear (CLEAR); Urine Color Straw (Yellow); Urobilinogen Urine Norm (Negative); pH Urine 7 (5-7)
[2020-12-13 18:07] LABS: 25 Hydroxy Vitamin D 44 ng/mL (30-100); Alanine Aminotransferase 14 U/L (0-33); Alkaline Phosphatase 70 IU/L (35-105); Anion Gap 12.8 (5-19); Aspartate Amino Transferase 13 U/L (0-32); Blood Urea Nitrogen 9 mg/dL (6-20); Calcium 8.7 mg/dL (8.5-10.5); Carbon Dioxide 23 mmol/L (22-29); Chloride 104 mmol/L (98-107); Globulin 3.1 g/dL (1.3-4.6); Glucose 75 mg/dL (65-115); Magnesium 1.9 mg/dL (1.7-2.3); Osmolality Calculated 279 mOsm/kg (285-295); Potassium 3.8 mmol/L (3.5-5.1); Sodium 136 mmol/L (136-145); Thyroid Stimulating Hormone 1.01 uIU/mL (0.27-4.20); Total Protein 7.1 g/dL (6.6-8.7); Vitamin B12 725 pg/mL (232-1245)
[2020-12-13 19:03] LABS: Folate Level > 20.0 ng/mL (4.8-37.3)
[2020-12-14 16:44] LABS: Erythrocyte Sedimentation Rate 51 mm/hr (0-15)
[2020-12-18 01:23] LABS: Vitamin B1(Thiamin) Plas/Ser 7 nmol/L (8-30)
[2020-12-18 23:22] LABS: Immunoglobulin A 363 mg/dL (47-310)
[2020-12-20 23:12] LABS: Glucose-6-Phosphate Dehydrogen 17.4 U/g Hgb (7.0-20.5)
[2020-12-21 16:12] LABS: Gliadin Ab.IgA 11.7 U/mL; Gliadin Ab.IgG <1.0 U/mL; Tissue Transglutaminase IgA Ab <1.0 U/mL; Tissue transglutaminase Ab.IgG <1.0 U/mL
== END 2020-12-13 16:46 | disposition home or self-care (01) ==
PROVIDERS: PCP Nurse Practitioner Family; Visit Provider Internal Medicine
DX: D68.61 Antiphospholipid syndrome (principal); M25.50 Pain in unspecified joint; M32.9 Systemic lupus erythematosus, unspecified; R76.8 Other specified abnormal immunological findings in serum; Z79.899 Other long term (current) drug therapy; D86.9 Sarcoidosis, unspecified; Z51.81 Encounter for therapeutic drug level monitoring
CPT/HCPCS: 36415; 80053; 81003; 82306; 82607; 82746; 82784; 82955; 83516; 83735; 84425; 84443; 85025; 85610; 85651; 85730; 86140

== ENCOUNTER → 2020-12-26 14:40 | Outpatient (BNVA) | payer BC, MEDICAID, SELFPAY | PROVIDERS: PCP Nurse Practitioner Family; Visit Provider Nurse Practitioner Family | DX: Z20.822 Contact with and (suspected) exposure to COVID-19 (principal) | CPT/HCPCS: 87635 ==

== ENCOUNTER 2020-12-28 01:55 | Emergency (ER) | payer BC, MEDICAID, SELFPAY ==
[2020-12-28 01:57] VITALS: BP 154/106; PULSE 90; RESP 20; TEMP 36.4; O2SAT 98; BMI 25.8
--- NOTE | 2020-12-28 01:57 | W.ED.URI ---
HPI - URI/Sore Throat General: Chief Complaint: Upper Respiratory Infection Stated Complaint: SOB/COUGH Time Seen by Provider: 12/28/20 01:57 History of Present Illness: HPI Narrative: 25-year-old female comes in today with persistent coughing. Patient is in no acute distress at this time. Patient came in by EMS. Patient recently been started on some azithromycin for respiratory infection. Patient was worried that she may be developing pneumonia. Patient does use inhalers for asthma. Patient reports illness for 4 days. MD elicited complaint: cough Review of Systems General: Reports: 10 or more systems reviewed and unremarkable except in HPI and below Resp: Reports: non-productive cough PFSH ED PFSH: Medical History Antiphospholipid antibody syndrome Systemic lupus erythematosus Family History Mother Ovarian cancer Cervical cancer Hypertension Grandmother Breast cancer maternal Colon cancer maternal Hypertension maternal Thyroid condition maternal Father Heart disease Hypertension Stroke Family/Other Diabetes maternal aunt Social History Smoking and tobacco status: current every day smoker cigarettes Packs smoked per day: 1 Alcohol intake: current Alcohol intake frequency: few times a month Alcohol type: hard liquor Female Reproductive History: Date of last menstrual period: 03/15/19 Physical Exam Const: COMMON NORMALS: no acute distress and patient oriented x3 GENERAL APPEARANCE: cooperative HENMT: COMMON NORMALS: normocephalic and Normal external nose present HEAD & SCALP: normal to inspection and normocephalic NOSE: Normal external nose present MOUTH: Normal oral and palatal mucosa present THROAT: posterior oropharynx normal Eye: GENERAL EYE: appearance normal, both eyes and all related structures Neck/C-Spine: COMMON NORMALS: full ROM Lymph: LYMPHATIC: no lymphadenopathy noted Chest: COMMONS NORMALS: normal inspection of the chest Resp: COMMON NORMALS: normal respiratory effort and clear to auscultation bilaterally EFFORT & INSPECTION: Yes able to speak in complete sentences AUSCULTATION: clear to auscultation bilaterally Cardio: COMMON NORMALS: regular rate and regular rhythm RATE: regular rate RHYTHM: regular rhythm GI: COMMON NORMALS: non-tender : COMMON NORMALS: Yes no CVA tenderness BLADDER/KIDNEY EXAM: Yes no CVA tenderness Back/Pelvis: COMMON NORMALS: no CVA tenderness and thoracic and lumbar spine normal to inspection Extremity: COMMON NORMALS: normal to inspection Neuro: COMMON NORMALS: patient oriented x3 and moves all extremities Psych: COMMON NORMALS: mental status grossly normal and cooperative Skin: COMMON NORMALS: no rashes or lesions noted GENERAL SKIN EXAM: no rashes or lesions noted Course Vital Signs: Vital signs: Vital Signs Temperature 97.5 F L 12/28/20 01:57 Pulse Rate 90 12/28/20 01:57 Respiratory Rate 20 H 12/28/20 01:57 Blood Pressure 154/106 12/28/20 01:57 Pulse Oximetry 98 12/28/20 01:57 MDM - URI/Sore Throat MDM Narrative: Medical decision making narrative: 25-year-old female comes in today with persistent cough. Patient states that she was unable to get her cough under control tonight and she actually wetted herself. Patient does have a history of asthma. Patient appears well. Patient appears no acute distress. Lungs are clear to auscultation. Vital signs are normal. Patient makes full sentences without any respiratory difficulty. No episodes of coughing were noted. Differential diagnosis includes but not limited to pneumonia, acute bronchitis, exacerbation of asthma. Chest x-ray was normal. COVID-19 antigen test is negative. Patient will await Covid PCR test for final results. Recommended continue with azithromycin as directed. Recommend follow-up with primary care as needed. Patient was given 10 mg dexamethasone IM for exacerbation of asthma versus bronchitis. Patient was given some Promethazine DM as needed for persistent coughing. Lab Data: Labs: Lab Results 12/28/20 02:14 SARS-CoV-2 Ag (Rap id) Negative (Negative) Discharge Plan Discharge Patient Disposition: Home Clinical Impression: Cough due to bronchospasm, Bronchitis Condition: Stable Prescriptions: New promethazine-DM 6.25-15 mg/5 mL syrup 5 ml PO Q6H PRN (Reason: cough) Qty: 118 RF: 0 No Action prednisone 20 mg tablet 20 mg PO DAILY RF: 0 budesonide-formoterol [Symbicort] 80-4.5 mcg/actuation HFA aerosol inhaler 2 puff inhalation BID RF: 0 vitamin B complex [B Complex-Vitamin B12] Tablet 1 tab PO DAILY Qty: 90 RF: 0 azithromycin [Zithromax] 1 gram packet 1 g PO DAILY 7 Days Qty: 1 RF: 0 albuterol sulfate 90 mcg/actuation HFA aerosol inhaler 2 puff inhalation Q6H PRNRF: 0 prednisone 5 mg tablet See Rx Instructions PO DAILY Qty: 60 RF: 0 thiamine HCl (vitamin B1) 100 mg tablet 50 mg PO DAILY Qty: 30 RF: 0 B12 Active 1,000 mcg tablet,chewable 1,000 mcg PO DAILY Qty: 30 RF: 0 folic acid 1 mg tablet 1 mg PO DAILY Qty: 30 RF: 0 aspirin [Adult Low Dose Aspirin] 81 mg tablet,delayed release (DR/EC) 81 mg PO DAILY RF: 0 (DME) cam walker See Rx Instructions .ROUTE .MEDSUPPLY Qty: 1 RF: 0 hydroxychloroquine 200 mg tablet 200 mg PO BID Qty: 60 RF: 3 thiamine HCl (vitamin B1) 100 mg tablet 100 mg PO DAILY Qty: 30 RF: 0 Discharge Orders: Discharge ED (Routine); Ordered 12/28/20 Ordered By: Connor Gasca Referrals: Daina Lucas FNP [Referring] - Discharge Diet: Usual diet Discharge Activity: Increase activity as tolerated Patient Instructions: Acute Bronchitis (ED), Opioid Safety Activity Restrictions/Additional Instructions: Continue with azithromycin and medications as directed by primary care. Drink plenty of fluids. Follow-up with primary care as needed. Use Promethazine DM for persistent cough as needed. Return to the emergency department for new concerns or worsening symptoms. Coding Level of Care Code ED Building Equipment Inspector for Ebony Peña Exam Comprehensive
--- NOTE | 2020-12-28 02:02 | XRR_ITS ---
PROCEDURE INFORMATION: Exam: XR Chest Exam date and time: 12/28/2020 2:02 AM Age: 25 years old Clinical indication: Patient HX: Cough with SOB. TECHNIQUE: Imaging protocol: XR of the chest. Views: 1 view. COMPARISON: CR Chest 2 views* [id number] 04/06/2018 1:11 PM FINDINGS: Lungs: Calcified pulmonary nodule/nodules, consistent with prior granulomatous disease. Pleural spaces: Unremarkable. No pleural effusion. No pneumothorax. Heart/Mediastinum: Unremarkable. No cardiomegaly. Bones/joints: Unremarkable. XR/XR chest 1V portable [id number] IMPRESSION: No acute disease. Radiation Dose CTDIVOL = (mGy): DLP = (mGy-cm)
[2020-12-28 02:40] LABS: SARS Covid-2 Antigen Negative (Negative)
[2020-12-28] MEDS: promethazine-cod syrup 6.25-10mg/5 mL UDC PO (02:50)
[2020-12-28] MEDS: dexamethasone 10 mg/mL INJ IM (02:50)
[2020-12-28 02:57] VITALS: BP 153/103; PULSE 95; RESP 18; TEMP 36.8; O2SAT 95
== END 2020-12-28 03:01 | disposition home or self-care (01) ==
PROVIDERS: Emergency Provider Nurse Practitioner Family
DX: J20.9 Acute bronchitis, unspecified (principal); Z79.82 Long term (current) use of aspirin; Z79.52 Long term (current) use of systemic steroids; F17.210 Nicotine dependence, cigarettes, uncomplicated
CPT/HCPCS: 71045; 87426; 96372; 99283; J1100

== ENCOUNTER → 2020-12-30 14:37 | Outpatient (BNVA) | payer BC, MEDICAID, SELFPAY | PROVIDERS: Visit Provider Emergency Medicine | DX: J02.9 Acute pharyngitis, unspecified (principal); J40 Bronchitis, not specified as acute or chronic; J06.9 Acute upper respiratory infection, unspecified | CPT/HCPCS: 86308; 87071; 87880 ==

== ENCOUNTER 2021-08-28 19:01 | Emergency (ER) | payer BC, MEDICAID, SELFPAY ==
[2021-08-28 19:16] VITALS: BP 148/100; PULSE 91; RESP 18; TEMP 36.6; O2SAT 98; BMI 31.7
--- NOTE | 2021-08-28 20:36 | USR_ITS ---
PROCEDURE INFORMATION: Exam: US Duplex Artery or Vein of the Abdominal and/or Reproductive Organs, Limited Exam date and time: 08/28/2021 9:10 PM Age: 26 years old Clinical indication: Pelvic pain; Prior surgery; Surgery date: 6+ months; Surgery type: Leep C/O cervical CA 2018; Patient HX: Heavy vag bleed today. Lmp = 08-18-2021. HX leep procedure November 2018 C/O cervical CA. History of multiple miscarriages (8 so far). Since hcg is positive, probably this is the 9th. No evidence of iup. No evidence of adnexal mass or fluid. ; Additional info: Vaginal bleeding with a very low semi quant hcg = 0.50 TECHNIQUE: Imaging protocol: Real-time duplex ultrasound scan of the arterial or venous flow of the abdomen and/or reproductive organs, with color Doppler flow and spectral waveform analysis with image documentation. Exam focused on the region of clinical interest. Duplex images were received to evaluate vascular conditions. COMPARISON: US pelvic complete* [id number] 05/27/2019 1:13 AM FINDINGS: The uterus measures 7.2 cm in length. Several myometrial masses, suspicious for uterine fibroids. The largest measures up to 24-25 mm in size. No visible intra or extrauterine gestational sac. Endometrial thickness is 4-5 mm. No free pelvic fluid. The right ovary measures 24 x 18 x 23 mm, estimated volume 5.1 cc. The right ovary appears essentially unremarkable. The left ovary measures 25 x 15 x 19 mm, estimated volume 3.9 cc. The left ovary appears essentially unremarkable. Ovarian blood flow was evaluated with color and spectral Doppler imaging. Arterial blood flow detected within each ovary. If the patient is indeed , the sonographic appearance alone is nonspecific. The differential diagnosis would include an early viable intrauterine less than four to five weeks gestation, a miscarriage, as well as an occult ectopic . Appropriate clinical follow up, including HCG level follow-up is recommended. The urinary bladder was not completely evaluated/imaged at this time. Endovaginal scanning provided better visualization/evaluation of the endometrium and adnexal regions, as discussed above. PROCEDURE INFORMATION: Exam: US Pelvis Complete, Transabdominal and US Pelvis, Transvaginal Exam date and time: 08/28/2021 9:10 PM Age: 26 years old Clinical indication: Pelvic pain; Prior surgery; Surgery date: 6+ months; Surgery type: Leep C/O cervical CA 2018; Patient HX: Heavy vag bleed today. Lmp = 08-18-2021. HX leep procedure November 2018 C/O cervical CA. History of multiple miscarriages (8 so far). Since hcg is positive, probably this is the 9th. No evidence of iup. No evidence of adnexal mass or fluid. ; Additional info: Vaginal bleeding with a very low semi quant hcg = 0.50 TECHNIQUE: Imaging protocol: Real-time complete transabdominal and transvaginal pelvic ultrasound with image documentation. Transvaginal imaging was used for better evaluation of the endometrium, adnexa, and/or cervix. COMPARISON: US pelvic complete* [id number] 05/27/2019 1:13 AM FINDINGS: The uterus measures 7.2 cm in length. Several myometrial masses, suspicious for uterine fibroids. The largest measures up to 24-25 mm in size. No visible intra or extrauterine gestational sac. Endometrial thickness is 4-5 mm. No free pelvic fluid. The right ovary measures 24 x 18 x 23 mm, estimated volume 5.1 cc. The right ovary appears essentially unremarkable. The left ovary measures 25 x 15 x 19 mm, estimated volume 3.9 cc. The left ovary appears essentially unremarkable. Ovarian blood flow was evaluated with color and spectral Doppler imaging. Arterial blood flow detected within each ovary. If the patient is indeed , the sonographic appearance alone is nonspecific. The differential diagnosis would include an early viable intrauterine less than four to five weeks gestation, a miscarriage, as well as an occult ectopic . Appropriate clinical follow up, including HCG level follow-up is recommended. The urinary bladder was not completely evaluated/imaged at this time. Endovaginal scanning provided better visualization/evaluation of the endometrium and adnexal regions, as discussed above. US/US pelvic with transvaginal IMPRESSION: 1. No visible intra or extrauterine gestational sac. 2. See above discussion and recommendations. 3. Several presumed uterine fibroids. 4. Unremarkable ovaries/adnexa. 5. Blood flow detected in each ovary. 6. Other details discussed above.
[2021-08-28 20:55] LABS: Basophils % 0.6 %; Eosinophils # 0.3 10^3/uL (0.0-0.8); Eosinophils % 3.9 %; Hematocrit 42.1 % (37.0-47.0); Hemoglobin 14.8 g/dL (11.5-15.3); Lymphocytes # 2.5 10^3/uL (0.8-4.8); Lymphocytes % 39.3 %; Mean Corpuscular HGB Conc 35.2 g/dL (30.0-36.0); Mean Corpuscular Hemoglobin 32.4 pg (28.0-34.0); Mean Corpuscular Volume 92.1 fl (81-99); Mean Platelet Volume 11.9 fL (7.4-10.4); Monocytes # 0.5 10^3/uL (0.2-0.9); Monocytes % 8.2 %; Neutrophils % 47.8 %; Nucleated Red Blood Cells % 0 %; Platelet Count 141 10^3/cmm (130-400); Red Blood Count 4.57 10^6/uL (4.1-5.3); Red Cell Distribution Width 11.9 % (12.1-15.1); White Blood Count 6.5 10^3/uL (4.0-10.0)
[2021-08-28] MEDS: ketorolac 30 mg/mL INJ 15 MG IVP (20:57)
--- NOTE | 2021-08-28 21:06 | W.ED.FEMALGU ---
HPI - Female Genitourinary General: Chief complaint: Vaginal Bleeding Stated complaint: Vaginal Bleeding\Clots Time Seen by Provider: 08/28/21 20:09 Source: patient Mode of arrival: ambulatory Limitations: no limitations History of Present Illness: 26-year-old female who states that over the last 2 days she been having heavy vaginal bleeding. She states her last menstruation was 4 weeks ago but this is heavier than her typical bleeding and she is passing clots. States she has had multiple miscarriages in the past she is unsure if she is she has had had some lower abdominal cramping denies any lightheadedness denies any fevers. Associated symptoms: Reports abdominal pain; Deny headache(s) Date of Last Menstrual Period: 08/28/21 Review of Systems Const: Denies: fever(s), chills, body aches or change in appetite Eyes: Denies: blurry vision or eye discomfort ENMT: Denies: throat pain or dental pain Card: Denies: chest pain Resp: Denies: dyspnea GI: Reports: abdominal pain : Reports: vaginal bleeding Musc: Denies: neck pain or back pain Skin/Breast: Denies: rash Neuro: Denies: headache(s) Psych: Denies: depression Wan/Lymph: Denies: easy bruising All/Imm: Denies: urticaria PFSH ED PFSH: Medical History Antiphospholipid antibody syndrome Systemic lupus erythematosus Family History Mother Ovarian cancer Cervical cancer Hypertension Grandmother Breast cancer maternal Colon cancer maternal Hypertension maternal Thyroid condition maternal Father Heart disease Hypertension Stroke Family/Other Diabetes maternal aunt Social History Smoking and tobacco status: current every day smoker cigarettes Packs smoked per day: 1 Alcohol intake: current Alcohol intake frequency: few times a month Alcohol type: hard liquor Female Reproductive History: Date of last menstrual period: 08/28/21 Spontaneous abortions: No Physical Exam Const: COMMON NORMALS: no acute distress, patient oriented x3 and healthy appearing HENMT: COMMON NORMALS: normocephalic and atraumatic HEAD & SCALP: normocephalic and atraumatic Eye: COMMON NORMALS: Equal, round and reactive pupils present and EOMs intact bilaterally PUPIL: Yes Equal, round and reactive pupils present Neck/C-Spine: COMMON NORMALS: full ROM and supple Chest: COMMONS NORMALS: normal inspection of the chest and normal palpation of entire chest wall Resp: COMMON NORMALS: normal respiratory effort, No retractions, No use of accessory muscles and clear to auscultation bilaterally AUSCULTATION: clear to auscultation bilaterally Cardio: COMMON NORMALS: regular rate, regular rhythm and No murmurs present (Cardio) RATE: regular rate RHYTHM: regular rhythm GI: COMMON NORMALS: Normal to inspection, nondistended, normoactive bowel sounds present, Soft to palpation, non-tender and no masses PALPATION: Yes Soft to palpation Extremity: COMMON NORMALS: normal to inspection and full ROM Neuro: COMMON NORMALS: patient oriented x3, moves all extremities and no focal motor deficits Psych: COMMON NORMALS: mental status grossly normal, Normal thought process present and cooperative THOUGHT PROCESS: Normal thought process present Skin: COMMON NORMALS: no rashes or lesions noted and no wounds GENERAL SKIN EXAM: no rashes or lesions noted Course Vital Signs: Vital signs: Vital Signs Temperature 97.9 F 08/28/21 19:16 Pulse Rate 91 08/28/21 19:16 Respiratory Rate 18 08/28/21 19:16 Blood Pressure 148/100 08/28/21 19:16 Pulse Oximetry 98 08/28/21 19:16 MDM - Female Medical Decision Making Patient presents here with vaginal bleeding her hemoglobin here is normal ultrasound showed possible fibroids we will get her follow-up with COMPUTER TYPESETTER she is not she has been well-appearing here with no signs of shock she is to follow-up and return if worsening she understands agrees to plan. Lab Data : 08/28/21 20:50 Laboratory Results WBC 6.5 10^3/uL (4.0-10.0) 08/28/21 20:50 RBC 4.57 10^6/uL (4.1-5.3) 08/28/21 20:50 Hgb 14.8 g/dL (11.5-15.3) 08/28/21 20:50 Hct 42.1 % (37.0-47.0) 08/28/21 20:50 MCV 92.1 fl (81-99) 08/28/21 20:50 MCH 32.4 pg (28.0-34.0) 08/28/21 20:50 MCHC 35.2 g/dL (30.0-36.0) 08/28/21 20:50 RDW 11.9 % (12.1-15.1) L 08/28/21 20:50 Plt Count 141 10^3/cmm (130-400) 08/28/21 20:50 MPV 11.9 fL (7.4-10.4) H 08/28/21 20:50 Neut % (Auto) 47.8 % 08/28/21 20:50 Lymph % (Auto) 39.3 % 08/28/21 20:50 Humphreys % (Auto) 8.2 % 08/28/21 20:50 Eos % (Auto) 3.9 % 08/28/21 20:50 Baso % (Auto) 0.6 % 08/28/21 20:50 Neut # (Auto) 3.10 10^3/uL (1.8-7.7) 08/28/21 20:50 Lymph # (Auto) 2.5 10^3/uL (0.8-4.8) 08/28/21 20:50 Humphreys # (Auto) 0.5 10^3/uL (0.2-0.9) 08/28/21 20:50 Eos # (Auto) 0.3 10^3/uL (0.0-0.8) 08/28/21 20:50 Baso # (Auto) 0.0 10^3/uL (0.0-0.1) 08/28/21 20:50 Nucleated RBC % (auto) 0 % 08/28/21 20:50 Nucleated RBCs # 0.0 /100WBC 08/28/21 20:50 Ser , Semi-Qnt 0.50 mIU/mL 08/28/21 20:50 Discharge Plan Discharge Patient Disposition: Home Clinical Impression: Vaginal bleeding Condition: Stable Prescriptions: No Action prednisone 20 mg tablet 20 mg PO DAILY 0RF budesonide-formoterol [Symbicort] 80-4.5 mcg/actuation HFA aerosol inhaler 2 puff inhalation BID 0RF vitamin B complex [B Complex-Vitamin B12] Tablet 1 tab PO DAILY Qty: 90 0RF azithromycin [Zithromax] 1 gram packet 1 g PO DAILY 7 Days Qty: 1 0RF albuterol sulfate 90 mcg/actuation HFA aerosol inhaler 2 puff inhalation Q6H PRN0RF prednisone 5 mg tablet See Rx Instructions PO DAILY Qty: 60 0RF Rx Instructions: take 1-3 tablets x 3 days, then 2 tablets x 3 days, then 1 tablet x 5 days PRN for flare PO daily; thiamine HCl (vitamin B1) 100 mg tablet 50 mg PO DAILY Qty: 30 0RF B12 Active 1,000 mcg tablet,chewable 1,000 mcg PO DAILY Qty: 30 0RF aspirin [Adult Low Dose Aspirin] 81 mg tablet,delayed release (DR/EC) 81 mg PO DAILY 0RF nystatin 100,000 unit/mL suspension 1 ml PO TID Qty: 473 0RF Rx Instructions: swish and swallow (DME) ruthie pinto See Rx Instructions .ROUTE .MEDSUPPLY Qty: 1 0RF Rx Instructions: As directed hydroxychloroquine 200 mg tablet 200 mg PO BID Qty: 60 3RF thiamine HCl (vitamin B1) 100 mg tablet 100 mg PO DAILY Qty: 30 0RF folic acid 1 mg tablet 1 mg PO DAILY Qty: 30 3RF promethazine-DM 6.25-15 mg/5 mL syrup 5 ml PO Q6H PRN (Reason: cough) Qty: 118 0RF Discharge Orders: Discharge ED (Routine); Ordered 08/28/21 Ordered By: Thuan Lugo Referrals: Ligia Izaguirre MD [Physician] - 1-3 days Discharge Diet: Advance as tolerated Discharge Activity: Resume usual activity Patient Instructions: Abnormal (Dysfunctional) Uterine Bleeding (ED) Coding Level of Care Code ED Sack Lifter for Chg Fwd Exam Comprehensive
[2021-08-28 23:59] VITALS: PULSE 84; O2SAT 97
--- NOTE | 2021-08-29 16:11 | DCPLANNER ---
Addendum entered by Porsha Crook 09/17/21 09:58: Patient had a follow up appointment scheduled for 09.03.21 with [facility] - patient did not attend appointment. Original Note: administrative manager had message to schedule a follow [facility] appointment for [facility] with [facility]. administrative manager sent patients information to the front office staff at [facility]. Patients information will be printed and reviewed. Clinic will call patient with appointment information.
== END 2021-08-28 22:40 | disposition home or self-care (01) ==
PROVIDERS: Emergency Provider Emergency Medicine
DX: N93.9 Abnormal uterine and vaginal bleeding, unspecified (principal); Z79.82 Long term (current) use of aspirin; M32.9 Systemic lupus erythematosus, unspecified; F17.210 Nicotine dependence, cigarettes, uncomplicated
CPT/HCPCS: 76830; 76856; 84702; 85025; 96374; 99284; J1885

== ENCOUNTER → 2022-01-31 14:04 | Outpatient (BNVA) | payer BC, MEDICAID, SELFPAY | PROVIDERS: Visit Provider Nurse Practitioner Family | DX: R68.89 Other general symptoms and signs (principal); J15.9 Unspecified bacterial pneumonia | CPT/HCPCS: 71046; 87400 ==

== ENCOUNTER → 2022-03-12 13:38 | Outpatient (BNVA) | payer BC, MEDICAID, SELFPAY | PROVIDERS: Visit Provider Nurse Practitioner Family | DX: S69.92XA Unspecified injury of left wrist, hand and finger(s), initial encounter (principal); W19.XXXA Unspecified fall, initial encounter | CPT/HCPCS: 73130 ==

== ENCOUNTER → 2022-03-13 14:10 | Outpatient (BNVA) | payer BC, MEDICAID, SELFPAY | PROVIDERS: Visit Provider Nurse Practitioner Family | DX: S69.92XA Unspecified injury of left wrist, hand and finger(s), initial encounter (principal); X58.XXXA Exposure to other specified factors, initial encounter; M79.631 Pain in right forearm | CPT/HCPCS: 73090 ==

== ENCOUNTER → 2022-05-13 15:19 | Outpatient (BNVA) | payer BC, MEDICAID, SELFPAY | PROVIDERS: Visit Provider Nurse Practitioner Family | DX: Z20.822 Contact with and (suspected) exposure to COVID-19 (principal); U07.1 COVID-19 | CPT/HCPCS: 87426 ==

== ENCOUNTER 2022-08-07 10:08 | Emergency (ER) | payer BC, MEDICAID, SELFPAY ==
[2022-08-07 11:14] VITALS: BMI 34.3
[2022-08-07 11:20] VITALS: BP 138/105; PULSE 76; RESP 16; TEMP 37; O2SAT 98
--- NOTE | 2022-08-07 11:27 | XRR_ITS ---
PROCEDURE INFORMATION: Exam: XR Chest Exam date and time: 08/07/2022 11:33 AM Age: 27 years old Clinical indication: Pain; Angina pectoris; Additional info: Cp TECHNIQUE: Imaging protocol: Radiologic exam of the chest. Views: 1 view. COMPARISON: CR XR chest 2V* [id number] 01/31/2022 2:13 PM FINDINGS: Lungs: Unremarkable. No consolidation. Evidence of old granulomatous disease right mid lung zone. Pleural spaces: Unremarkable. No pleural effusion. No pneumothorax. Heart/Mediastinum: Unremarkable. No cardiomegaly. Bones/joints: Unremarkable for age. XR/XR chest 1V portable [id number] IMPRESSION: Negative chest exam.
--- NOTE | 2022-08-07 11:28 | ECG_ITS ---
[facility] Test Date: 2022-08-07 Pat Name: Luba Ann Department: Room: Gender: Female Instrument Repair Specialist: : [id number] Requested By: Jimbo Xiao Order Number: [id number] Blanca MD: Travon Taylor M.D. Measurements Intervals Pratt Rate: 75 P: 50 NH: 161 QRS: 56 QRSD: 82 T: 44 QT: 370 QTc: 416 Interpretive Statements SINUS RHYTHM WITH SINUS ARRHYTHMIA POSSIBLE LEFT ATRIAL ENLARGEMENT [-0.1mV P-WAVE IN V1/V2] Compared to ECG 07/28/2020 11:13:13 No significant changes Electronically Signed On 08-07-2022 13:19:54 CDT by Travon Taylor M.D. [email or web address]
[2022-08-07 11:52] LABS: Basophils % 0.5 %; Eosinophils # 0.2 10^3/uL (0.0-0.8); Hematocrit 40.6 % (37.0-47.0); Hemoglobin 13.4 g/dL (11.5-15.3); Lymphocytes # 3.1 10^3/uL (0.8-4.8); Lymphocytes % 50.9 %; Mean Corpuscular Hemoglobin 29.5 pg (28.0-34.0); Mean Corpuscular Volume 89.2 fl (81-99); Mean Platelet Volume 12.3 fL (7.4-10.4); Monocytes # 0.3 10^3/uL (0.2-0.9); Monocytes % 5.5 %; Neutrophils # 2.39 10^3/uL (1.8-7.7); Neutrophils % 39.8 %; Nucleated Red Blood Cells % 0 %; Platelet Count 152 10^3/cmm (130-400); Red Blood Count 4.55 10^6/uL (4.1-5.3); Red Cell Distribution Width 14.2 % (12.1-15.1)
--- NOTE | 2022-08-07 11:54 | ED_ITS ---
Documented by User: SEVERO Lowry 08/08/22 07:08 HPI - Chest Pain General: Chief Complaint: Chest Pain Stated Complaint: High blood pressure, loc last night Time Seen by Provider: 08/07/22 10:15 History of Present Illness: Patient is a 27-year-old female who comes to the ED with chest pain. Patient states that last night she was walking across the street in her house to smoke a cigarette and she developed sudden onset of chest pain, shortness of breath and diaphoresis. She got lightheaded and had a syncopal episode and fell to the ground. She was out for approximately 20 to 30 seconds and then regained consciousness. For few minutes afterwards she was confused but within an hour or so she returned to normal mental baseline. Since syncopal episode last night she has been having some chest pain that she describes as chest tightness in the left side of her chest. She rates the pain currently a 6 out of 10. Denies any worsening or improving factors. Denies any headache, nausea/vomiting, fevers, chills, abdominal pain, bladder or bowel symptoms. Patient has a history of emphysema and has inhalers at home that she uses daily. Associated symptoms: Reports syncope; Deny abdominal pain, dyspnea, fever(s), nausea, palpitations or vomiting Review of Systems Const: Denies: fever(s), chills or fatigue Eyes: Denies: change in vision or eye discomfort ENMT: Denies: throat pain, odynophagia, nasal discharge or nasal congestion Card: Reports: chest pain and syncope; Denies: palpitations, edema, swelling of feet/ankles, dyspnea on exertion or orthopnea Resp: Denies: dyspnea, productive cough or non-productive cough GI: Denies: abdominal pain, nausea, vomiting, diarrhea, constipation or hematochezia : Denies: flank pain, dysuria or hematuria Musc: Denies: neck pain, back pain or extremity swelling Skin/Breast: Denies: rash or new lesions Neuro: Denies: headache(s), numbness in extremities or weakness in extremities PFSH ED PFSH: Medical History Antiphospholipid antibody syndrome Systemic lupus erythematosus Family History Mother Ovarian cancer Cervical cancer Hypertension Grandmother Breast cancer maternal Colon cancer maternal Hypertension maternal Thyroid condition maternal Father Heart disease Hypertension Stroke Family/Other Diabetes maternal aunt Social History Substance/Drug Use: current Substance/Drug use frequency: daily Other sub stance/drug use details: smoking CBD Female Reproductive History: Spontaneous abortions: No Physical Exam Const: COMMON NORMALS: no acute distress, patient oriented x3, healthy appearing and alert GENERAL APPEARANCE: cooperative and comfortable HENMT: COMMON NORMALS: normocephalic and atraumatic HEAD & SCALP: normocephalic and atraumatic; no Emmanuel's sign and no raccoon eyes MOUTH: Normal oral and palatal mucosa present THROAT: posterior oropharynx normal and uvula midline Eye: COMMON NORMALS: Equal, round and reactive pupils present, EOMs intact bilaterally and conjunctivae normal CONJUNCTIVA: Yes conjunctivae normal PUPIL: Yes Equal, round and reactive pupils present Neck/C-Spine: COMMON NORMALS: supple GENERAL: Yes normal visual inspection Chest: CHEST: Yes tenderness pectoral muscle on the left with point tenderness laterally Resp: COMMON NORMALS: normal respiratory effort, No retractions, No use of accessory muscles and clear to auscultation bilaterally AUSCULTATION: clear to auscultation bilaterally Cardio: COMMON NORMALS: regular rate, regular rhythm, S1 normal heart sound present, S2 normal heart sound present, No gallops present (Cardio), No clicks present (Cardio), No murmurs present (Cardio) and Peripheral pulses 2+ throughout RATE: regular rate RHYTHM: regular rhythm HEART SOUNDS: S1 normal heart sound present and S2 normal heart sound present PERIPHERAL PULSES: Peripheral pulses 2+ throughout GI: COMMON NORMALS: Normal to inspection, nondistended, normoactive bowel sounds present, Soft to palpation, non-tender and no masses PALPATION: Yes Soft to palpation : COMMON NORMALS: Yes no CVA tenderness BLADDER/KIDNEY EXAM: Yes no CVA tenderness Back/Pelvis: COMMON NORMALS: no CVA tenderness Extremity: COMMON NORMALS: normal to inspection Neuro: COMMON NORMALS: patient oriented x3, CN's II-XII intact bilaterally, moves all extremities, no focal motor deficits and no sensory deficits noted SENSORIUM/ORIENTATION: Yes alert COORDINATION/BALANCE: [id number] test normal SPEECH: speech normal GAIT: Yes Normal gait present MOTOR EXAM: 5/5 motor strength present throughout COORDINATION: [id number] test normal Skin: GENERAL SKIN EXAM: dry skin Course Vital Signs: Vital signs: Vital Signs Temperature 98.6 F 08/07/22 11:20 Pulse Rate 71 08/07/22 14:31 Respiratory Rate 16 08/07/22 14:31 Blood Pressure 122/86 08/07/22 14:31 Pulse Oximetry 100 08/07/22 14:31 Oxygen Delivery Me thod Room Air 08/07/22 14:31 MDM - Chest Pain Medical Decision Making Patient is a 27-year-old female who comes to the ED with chest pain. Patient states that last night she was walking across the street in her house to smoke a cigarette and she developed sudden onset of chest pain, shortness of breath and diaphoresis. She got lightheaded and had a syncopal episode and fell to the ground. She was out for approximately 20 to 30 seconds and then regained consciousness. For few minutes afterwards she was confused but within an hour or so she returned to normal mental baseline. Since syncopal episode last night she has been having some chest pain that she describes as chest tightness in the left side of her chest. She rates the pain currently a 6 out of 10. Denies any worsening or improving factors. Denies any headache, nausea/vomiting, fevers, chills, abdominal pain, bladder or bowel symptoms. Patient has a history of emphysema and has inhalers at home that she uses daily. Vitals are stable. Patient appears nontoxic in no acute distress or pain. Neuro exam shows no deficits. Patient's chest pain is reproducible with palpation to left pectoral muscle. Rest of exam is benign. CBC and CMP are unremarkable. Troponins negative. hCG negative. Chest x-ray shows no acute findings. Head CT shows no acute findings. EKG shows normal sinus rhythm with no ST segment elevation or depression seen. She was stable for discharge home and diagnosed with atypical chest pain and syncope. She was told to follow-up with her PCP within the next week for reevaluation. Return to ED precautions given. Patient understood and agreed with plan. Lab Data I reviewed the patient's lab results. 08/07/22 11:10 08/07/22 11:10 Radiology Impressions Chest X-Ray 08/07/22 11:27 IMPRESSION: Negative chest exam. Head CT 08/07/22 11:54 IMPRESSION: 1. No evidence of intracranial hemorrhage or mass effect. 2. Normal gill-white differentiation. 3. No acute intracranial findings. Notified SEVERO Lowry at 08/07/2022 12:15 PM. Laboratory Results WBC 6.0 10^3/uL (4.0-10.0) 08/07/22 11:10 RBC 4.55 10^6/uL (4.1-5.3) 08/07/22 11:10 Hgb 13.4 g/dL (11.5-15.3) 08/07/22 11:10 Hct 40.6 % (37.0-47.0) 08/07/22 11:10 MCV 89.2 fl (81-99) 08/07/22 11:10 MCH 29.5 pg (28.0-34.0) 08/07/22 11:10 MCHC 33.0 g/dL (30.0-36.0) 08/07/22 11:10 RDW 14.2 % (12.1-15.1) 08/07/22 11:10 Plt Count 152 10^3/cmm (130-400) 08/07/22 11:10 MPV 12.3 fL (7.4-10.4) H 08/07/22 11:10 Neut % (Auto) 39.8 % 08/07/22 11:10 Lymph % (Auto) 50.9 % 08/07/22 11:10 Boyle % (Auto) 5.5 % 08/07/22 11:10 Eos % (Auto) 3.0 % 08/07/22 11:10 Baso % (Auto) 0.5 % 08/07/22 11:10 Neut # (Auto) 2.39 10^3/uL (1.8-7.7) 08/07/22 11:10 Lymph # (Auto) 3.1 10^3/uL (0.8-4.8) 08/07/22 11:10 Boyle # (Auto) 0.3 10^3/uL (0.2-0.9) 08/07/22 11:10 Eos # (Auto) 0.2 10^3/uL (0.0-0.8) 08/07/22 11:10 Baso # (Auto) 0.0 10^3/uL (0.0-0.1) 08/07/22 11:10 Nucleated RBC % (auto) 0 % 08/07/22 11:10 Nucleated RBCs # 0.0 /100WBC 08/07/22 11:10 Sodium 137 mmol/L (136-145) 08/07/22 11:10 Potassium 3.5 mmol/L (3.5-5.1) 08/07/22 11:10 Chloride 103 mmol/L (98-107) 08/07/22 11:10 Carbon Dioxide 22 mmol/L (22-29) 08/07/22 11:10 Anion Gap 15.5 (5-19) 08/07/22 11:10 BUN 10 mg/dL (6-20) 08/07/22 11:10 Creatinine 0.8 mg/dL (0.5-0.9) 08/07/22 11:10 GFR Calculation 84.8 mL/min (90-130) L 08/07/22 11:10 Glucose 73 mg/dL (65-115) 08/07/22 11:10 Calculated Osmolality 282 mOsm/kg (285-295) L 08/07/22 11:10 Calcium 9.0 mg/dL (8.5-10.5) 08/07/22 11:10 Troponin T Baseline 6 ng/L (0-10) 08/07/22 11:10 Troponin T 120 Minute 6.00 ng/L (0-10) 08/07/22 13:49 Delta Troponin T 0 ABS# (0-10) 08/07/22 13:49 HCG, Qual Negative (Negative) 08/07/22 11:10 EKG Data EKG 1: EKG interpretation date: 08/07/22 Interpretation: Normal sinus rhythm, 75 bpm, no ST segment elevation or depression seen. Discharge Plan Discharge Patient Disposition: Home Clinical Impression: Atypical chest pain, Syncope Condition: Stable Prescriptions: No Action budesonide-formoterol [Symbicort] 80-4.5 mcg/actuation HFA aerosol inhaler 2 puff inhalation BID albuterol sulfate 90 mcg/actuation HFA aerosol inhaler 2 puff inhalation Q6H PRN (Reason: Shortness Of Breath Or Wheezing) aspirin [Adult Low Dose Aspirin] 81 mg tablet,delayed release (DR/EC) 81 mg PO DAILY nystatin 100,000 unit/mL suspension 1 ml PO TID Qty: 473 0RF Rx Instructions: swish and swallow fluticasone propionate 50 mcg/actuation spray,suspension 1 spray intranasal DAILY PRN (Reason: allergy symptoms) Qty: 16 0RF Rx Instructions: administer into each nostril (DME) ruthie pinto See Rx Instructions .ROUTE .MEDSUPPLY Qty: 1 0RF Rx Instructions: As directed hydroxychloroquine 200 mg tablet 200 mg PO BID Qty: 60 3RF folic acid 1 mg tablet 1 mg PO DAILY Qty: 30 3RF albuterol sulfate 2.5 mg /3 mL (0.083 %) solution for nebulization 2.5 mg inhalation Q6H PRN (Reason: Shortness Of Breath Or Wheezing) Rx Instructions: Use every 4-6 hours as needed prednisone 5 mg tablet 5 mg PO DAILY norethindrone-e.estradiol-iron 1 mg-20 mcg (21)/75 mg (7) tablet 1 tab PO DAILY Discharge Orders: Discharge ED (Routine); Ordered 08/07/22 Ordered By: Jimbo Xiao Referrals: Daina Lucas FNP [Primary Care Provider] - Discharge Diet: Regular Discharge Activity: Increase activity as tolerated Patient Instructions: Chest Pain - Noncardiac, Chest Pain (ED) Activity Restrictions/Additional Instructions: Follow-up with medical provider as directed. Take medications as prescribed. Return to the ER or your medical provider if condition worsens. Please read and understand discharge instructions. Thank you for choosing [facility] [place] for your healthcare needs today. Please realize this is an emergency room and that we are providing you with a me dical screening exam and this may not be complete and all inclusive of all the testing and or work up that you may need to determine your ailment or severity of your illness. It is very important that you follow up as instructed or that you return to the Emergency Department should you have concerns or if your condition changes or worsens in any way. Stand Alone Forms: Work/School Release Coding Level of Care Code ED Courtroom Clerk for Ebony Fwd Documented by User: Ronaldo Bishpo DO 08/08/22 07:43 HPI - Chest Pain General: Chief Complaint: Chest Pain Stated Complaint: High blood pressure, loc last night Time Seen by Provider: 08/07/22 10:15 [facility] ED PFSH: Medical History Antiphospholipid antibody syndrome Systemic lupus erythematosus Family History Mother Ovarian cancer Cervical cancer Hypertension Grandmother Breast cancer maternal Colon cancer maternal Hypertension maternal Thyroid condition maternal Father Heart disease Hypertension Stroke Family/Other Diabetes maternal aunt Social History Substance/Drug Use: current Substance/Drug use frequency: daily Other substance/drug use details: smoking CBD Course Vital Signs: Vital signs: Vital Signs Temperature 98.6 F 08/07/22 11:20 Pulse Rate 71 08/07/22 14:31 Respiratory Rate 16 08/07/22 14:31 Blood Pressure 122/86 08/07/22 14:31 Pulse Oximetry 100 08/07/22 14:31 Oxygen Delivery Me thod Room Air 08/07/22 14:31 MDM - Chest Pain Medical Decision Making Patient is a 27-year-old female who comes to the ED with chest pain. Patient states that last night she was walking across the street in her house to smoke a cigarette and she developed sudden onset of chest pain, shortness of breath and diaphoresis. She got lightheaded and had a syncopal episode and fell to the ground. She was out for approximately 20 to 30 seconds and then regained consciousness. For few minutes afterwards she was confused but within an hour or so she returned to normal mental baseline. Since syncopal episode last night she has been having some chest pain that she describes as chest tightness in the left side of her chest. She rates the pain currently a 6 out of 10. Denies any worsening or improving factors. Denies any headache, nausea/vomiting, fevers, chills, abdominal pain, bladder or bowel symptoms. Patient has a history of emphysema and has inhalers at home that she uses daily. Vitals are stable. Patient appears nontoxic in no acute distress or pain. Neuro exam shows no deficits. Patient's chest pain is reproducible with palpation to left pectoral muscle. Rest of exam is benign. CBC and CMP are unremarkable. Troponins negative. hCG negative. Chest x-ray shows no acute findings. Head CT shows no acute findings. EKG shows normal sinus rhythm with no ST segment elevation or depression seen. She was stable for discharge home and diagnosed with atypical chest pain and syncope. She was told to follow-up with her PCP within the next week for reevaluation. Return to ED precautions given. Patient understood and agreed with plan. Chart reviewed and patient discussed with midlevel. Agree with assessment and plan. Lab Data 08/07/22 11:10 08/07/22 11:10 Radiology Impressions Chest X-Ray 08/07/22 11:27 IMPRESSION: Negative chest exam. Head CT 08/07/22 11:54 IMPRESSION: 1. No evidence of intracranial hemorrhage or mass effect. 2. Normal gill-white differentiation. 3. No acute intracranial findings. Notified SEVERO Lowry at 08/07/2022 12:15 PM. Laboratory Results WBC 6.0 10^3/uL (4.0-10.0) 08/07/22 11:10 RBC 4.55 10^6/uL (4.1-5.3) 08/07/22 11:10 Hgb 13.4 g/dL (11.5-15.3) 08/07/22 11:10 Hct 40.6 % (37.0-47.0) 08/07/22 11:10 MCV 89.2 fl (81-99) 08/07/22 11:10 MCH 29.5 pg (28.0-34.0) 08/07/22 11:10 MCHC 33.0 g/dL (30.0-36.0) 08/07/22 11:10 RDW 14.2 % (12.1-15.1) 08/07/22 11:10 Plt Count 152 10^3/cmm (130-400) 08/07/22 11:10 MPV 12.3 fL (7.4-10.4) H 08/07/22 11:10 Neut % (Auto) 39.8 % 08/07/22 11:10 Lymph % (Auto) 50.9 % 08/07/22 11:10 Boyle % (Auto) 5.5 % 08/07/22 11:10 Eos % (Auto) 3.0 % 08/07/22 11:10 Baso % (Auto) 0.5 % 08/07/22 11:10 Neut # (Auto) 2.39 10^3/uL (1.8-7.7) 08/07/22 11:10 Lymph # (Auto) 3.1 10^3/uL (0.8-4.8) 08/07/22 11:10 Boyle # (Auto) 0.3 10^3/uL (0.2-0.9) 08/07/22 11:10 Eos # (Auto) 0.2 10^3/uL (0.0-0.8) 08/07/22 11:10 Baso # (Auto) 0.0 10^3/uL (0.0-0.1) 08/07/22 11:10 Nucleated RBC % (auto) 0 % 08/07/22 11:10 Nucleated RBCs # 0.0 /100WBC 08/07/22 11:10 Sodium 137 mmol/L (136-145) 08/07/22 11:10 Potassium 3.5 mmol/L (3.5-5.1) 08/07/22 11:10 Chloride 103 mmol/L (98-107) 08/07/22 11:10 Carbon Dioxide 22 mmol/L (22-29) 08/07/22 11:10 Anion Gap 15.5 (5-19) 08/07/22 11:10 BUN 10 mg/dL (6-20) 08/07/22 11:10 Creatinine 0.8 mg/dL (0.5-0.9) 08/07/22 11:10 GFR Calculation 84.8 mL/min (90-130) L 08/07/22 11:10 Glucose 73 mg/dL (65-115) 08/07/22 11:10 Calculated Osmolality 282 mOsm/kg (285-295) L 08/07/22 11:10 Calcium 9.0 mg/dL (8.5-10.5) 08/07/22 11:10 Troponin T Baseline 6 ng/L (0-10) 08/07/22 11:10 Troponin T 120 Minute 6.00 ng/L (0-10) 08/07/22 13:49 Delta Troponin T 0 ABS# (0-10) 08/07/22 13:49 HCG, Qual Negative (Negative) 08/07/22 11:10 Discharge Plan Discharge Patient Disposition: Home Clinical Impression: Atypical chest pain, Syncope Condition: Stable Prescriptions: No Action budesonide-formoterol [Symbicort] 80-4.5 mcg/actuation HFA aerosol inhaler 2 puff inhalation BID albuterol sulfate 90 mcg/actuation HFA aerosol inhaler 2 puff inhalation Q6H PRN (Reason: Shortness Of Breath Or Wheezing) aspirin [Adult Low Dose Aspirin] 81 mg tablet,delayed release (DR/EC) 81 mg PO DAILY nystatin 100,000 unit/mL suspension 1 ml PO TID Qty: 473 0RF Rx Instructions: swish and swallow fluticasone propionate 50 mcg/actuation spray,suspension 1 spray intranasal DAILY PRN (Reason: allergy symptoms) Qty: 16 0RF Rx Instructions: administer into each nostril (DME) cam walker See Rx Instructions .ROUTE .MEDSUPPLY Qty: 1 0RF Rx Instructions: As directed hydroxychloroquine 200 mg tablet 200 mg PO BID Qty: 60 3RF folic acid 1 mg tablet 1 mg PO DAILY Qty: 30 3RF albuterol sulfate 2.5 mg /3 mL (0.083 %) solution for nebulization 2.5 mg inhalation Q6H PRN (Reason: Shortness Of Breath Or Wheezing) Rx Instructions: Use every 4-6 hours as needed prednisone 5 mg tablet 5 mg PO DAILY norethindrone-e.estradiol-iron 1 mg-20 mcg (21)/75 mg (7) tablet 1 tab PO DAILY Discharge Orders: Discharge ED (Routine); Ordered 08/07/22 Ordered By: Jimbo Xiao Referrals: Daina Lucas FNP [Primary Care Provider] - Discharge Diet: Regular Discharge Activity: Increase activity as tolerated Patient Instructions: Chest Pain - Noncardiac, Chest Pain (ED) Activity Restrictions/Additional Instructions: Follow-up with medical provider as directed. Take medications as prescribed. Return to the ER or your medical provider if condition worsens. Please read and understand discharge instructions. Thank you for choosing [facility] [place] for your healthcare needs today. Please realize this is an emergency room and that we are providing you with a medical screening exam and this may not be complete and all inclusive of all the testing and or work up that you may need to determine your ailment or severity of your illness. It is very important that you follow up as instructed or that you return to the Emergency Department should you have concerns or if your condition changes or worsens in any way. Stand Alone Forms: Work/School Release Coding Level of Care Code ED Courtroom Clerk for Ebony Peña
--- NOTE | 2022-08-07 11:54 | CT_ITS ---
WS: [id number] CT HEAD TECHNIQUE: Noncontrast CT of the head obtained from the skullbase to the vertex. CLINICAL INFORMATION: Syncopal episode COMPARISON: 2018 DLP: 982.[address] scans at [facility] use at least one of these dose optimization techniques: automated e xposure control; mA and/or kV adjustment per patient size (includes targeted exams where dose is matc hed to clinical indication); or iterative reconstruction. FINDINGS: No evidence of intracranial hemorrhage or mass effect. Ventricular system and basal cisterns are warren nt. No extra-axial fluid collections. No evidence of mass or mass effect. Normal gill-white different iation. Paranasal sinuses and mastoid air cells are well aerated. .Normal visualized soft tissues. CT/CT head wo con* [id number] IMPRESSION: 1. No evidence of intracranial hemorrhage or mass effect. 2. Normal gill-white differentiation. 3. No acute intracranial findings. Notified SEVERO Lowry at 08/07/2022 12:15 PM.
[2022-08-07 12:02] LABS: HCG, Serum Qual Negative (Negative)
[2022-08-07 12:04] LABS: Troponin(5th) Baseline 6 ng/L (0-10)
[2022-08-07 12:07] LABS: Anion Gap 15.5 (5-19); Blood Urea Nitrogen 10 mg/dL (6-20); Carbon Dioxide 22 mmol/L (22-29); Chloride 103 mmol/L (98-107); Glomerular Filtration Rate 84.8 mL/min (90-130); Glucose 73 mg/dL (65-115); Osmolality Calculated 282 mOsm/kg (285-295); Potassium 3.5 mmol/L (3.5-5.1); Sodium 137 mmol/L (136-145)
[2022-08-07 12:54] VITALS: BP 160/125; PULSE 71; RESP 17; O2SAT 100
--- NOTE | 2022-08-07 13:27 | ECG_ITS ---
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 Measurements Intervals [place] Rate: 67 P: 24 OR: 167 QRS: 52 QRSD: 84 T: 52 QT: 399 QTc: 424 Interpretive Statements SINUS RHYTHM Compared to ECG 08/07/2022 11:28:20 Sinus arrhythmia no longer present Electronically Signed On 08-07-2022 13:55:44 CDT by Travon Taylor M.D. [id number]
[2022-08-07 13:35] VITALS: BP 99/81; PULSE 68; RESP 12; O2SAT 97
[2022-08-07 13:55] VITALS: BP 131/97; PULSE 82; RESP 23; O2SAT 100
[2022-08-07 14:31] VITALS: BP 122/86; PULSE 71; RESP 16; O2SAT 100
[2022-08-07 15:14] LABS: Troponin 5 2HR Delta 0 ABS# (0-10)
== END 2022-08-07 14:48 | disposition home or self-care (01) ==
PROVIDERS: Emergency Provider Physician Assistant; PCP Nurse Practitioner Family
DX: R07.89 Other chest pain (principal); R55 Syncope and collapse
CPT/HCPCS: 36415; 70450; 71045; 80048; 84484; 84703; 85025; 93005; 99285

== ENCOUNTER → 2022-11-20 11:49 | Outpatient (BNVA) | payer BC, MEDICAID, SELFPAY | PROVIDERS: PCP Nurse Practitioner Family; Visit Provider Nurse Practitioner Family | DX: R69 Illness, unspecified (principal); J22 Unspecified acute lower respiratory infection; B96.89 Other specified bacterial agents as the cause of diseases classified elsewhere; J01.90 Acute sinusitis, unspecified | CPT/HCPCS: 87400; 87426 ==

== ENCOUNTER → 2022-11-27 11:53 | Outpatient (BNVA) | payer BC, MEDICAID, SELFPAY | PROVIDERS: PCP Nurse Practitioner Family; Visit Provider Internal Medicine | DX: J06.9 Acute upper respiratory infection, unspecified (principal); R79.82 Elevated C-reactive protein (CRP); E51.9 Thiamine deficiency, unspecified; R53.83 Other fatigue; R76.8 Other specified abnormal immunological findings in serum; D68.61 Antiphospholipid syndrome; M32.9 Systemic lupus erythematosus, unspecified; J43.9 Emphysema, unspecified; R21 Rash and other nonspecific skin eruption; M25.50 Pain in unspecified joint | CPT/HCPCS: 36415; 80053; 81003; 83520; 85025; 85610; 85613; 85651; 85730; 86140; 86160; 86480 ==